=== PATIENT | male | born 1985 | race Caucasian/White ===

== ENCOUNTER 2023-09-08 16:37 | Emergency (ER) | payer OTHER, SELFPAY ==
[2023-09-08 16:43] VITALS: BP 138/85; PULSE 73; RESP 14; TEMP 36.1; O2SAT 100; BMI 37.8
--- NOTE | 2023-09-08 17:04 | ED_ITS ---
HPI - Extremity Injury (Upper) <MEY Go - Last Filed: 09/08/23 17:35> General Chief Complaint: Extremity Injury, Upper Stated Complaint: lt arm injury (bicep popped) Time Seen by Provider: 09/08/23 17:02 Source: patient Mode of arrival: Ambulatory History of Present Illness HPI narrative: 27-year-old male, never smoker, presents to the emergency department with left arm pain. Patient was moving a tree branch and felt a pop in his left elbow and is now unable to flex his arm. Patient is concerned he may have ruptured his biceps tendon. Obvious deformity showing a ?Tyson like biceps ?. Patient denies being in any extraordinary pain at this time. Related Data Allergies Allergy/AdvReac Type Severity Reaction Status Date / Time No Known Drug Allergies Allergy Verified 09/08/23 16:43 Review of Systems <MEY Go - Last Filed: 09/08/23 17:35> Review of Systems Narrative: Narrative: See HPI. GENERAL: Denies chills, fatigue, fever, sweats. RESPIRATORY: Denies dyspnea, cough, wheezing, sputum. CARDIOVASCULAR: Denies chest pain, palpitations, edema. MSK: Endorses left bicep pain and weakness. SKIN: Denies rash, skin lesions, or pruritis. NEUROLOGIC: Denies weakness, dizziness, headache, numbness, confusion. Patient History <MEY Go - Last Filed: 09/08/23 17:35> Social History Smoking Status: Unknown if ever smoked Smoking Status: Unknown if ever smoked alcohol intake frequency: holidays/special occasions only Substance Use Type: does not use Exam <MEY Go - Last Filed: 09/08/23 17:35> Narrative Exam Narrative: Exam Narrative: GENERAL: This is a well-nourished, well-developed patient, in no acute distress HEAD: Atraumatic. Normocephalic. RESPIRATORY: Respiratory rate and effort are normal. MSK: Moves all extremities. Neurovascularly intact. NEURO: A&O x 3. SKIN: Warm, dry, no rashes or lesions noted. ELBOW: There is swelling and asymmetry, but no bruising. There is no tenderness to palpation over the olecranon, medial epicondyle, lateral epicondyle. Negative hook test on left side. There is no specific soft tissue pain. Sensation grossly intact. Range of motion is limited due to pain. Range of motion of the shoulder and wrist is intact. Patient is able to pronate and supinate without pain. Resistive strength for flexion and extension is affected. The contralateral elbow exam is unremarkable. Initial Vital Signs Initial Vital Signs: Vital Signs Temperature 97.0 F L 09/08/23 16:43 Pulse Rate 73 09/08/23 16:43 Respiratory Rate 14 09/08/23 16:43 Blood Pressure 138/85 09/08/23 16:43 Pulse Oximetry 100 09/08/23 16:43 Oxygen Delivery Method Room Air 09/08/23 16:43 Reviewed <Juve Stoner DO - Last Filed: 09/09/23 07:17> Initial Vital Signs Initial Vital Signs: Vital Signs Temperature 97.0 F L 09/08/23 16:43 Pulse Rate 73 09/08/23 16:43 Respiratory Rate 14 09/08/23 16:43 Blood Pressure 138/85 09/08/23 16:43 Pulse Oximetry 100 09/08/23 16:43 Oxygen Delivery Method Room Air 09/08/23 16:43 Course <MEY Go - Last Filed: 09/08/23 17:35> Vital Signs Vital signs: Vital Signs - 8 hr 09/08/23 16:43 Temperature 97.0 F L Pulse Rate 73 Respiratory Rate 14 Blood Pressure 138/85 Pulse Oximetry 100 Oxygen Delivery Method Room Air <Juve Stoner DO - Last Filed: 09/09/23 07:17> Vital Signs Vital signs: Vital Signs - 8 hr 09/08/23 16:43 Temperature 97.0 F L Pulse Rate 73 Respiratory Rate 14 Blood Pressure 138/85 Pulse Oximetry 100 Oxygen Delivery Method Room Air MDM - Extremity Injury (Upper) <MEY Go - Last Filed: 09/08/23 17:35> Differential Diagnosis Differential diagnosis: Likely other (Elbow fracture, biceps tendon rupture) MDM Narrative Medical decision making narrative: 27-year-old male with suspected left distal biceps tendon rupture. Assessment revealed a negative hook test on the affected side. Discussed case with Dr. Stoner of the ED. Contacted on-call orthopedic surgeon, Dr. Hina Purvis, who recommended placing the left arm in a sling and to contact their office 1st thing tomorrow morning. Recommended cool compresses and Tylenol or ibuprofen as needed for discomfort. Discussed plan of care and return precautions with patient and spouse, who verbalized understanding and was agreeable with course of action. Discharge Plan Departure Patient Disposition: Home Clinical Impression: Injury of Upper Extremity Qualifiers: Encounter type: initial encounter Laterality: left Qualified Code(s): S49.92XA - Unspecified injury of left shoulder and upper arm, initial encounter Activity Restrictions/Additional Instructions: *You have been diagnosed with a suspected left biceps tendon rupture. I have contacted the on-call orthopedic doctor and they would like you to call their office 1st thing tomorrow morning. We have placed you in a sling and recommend cool compresses and Tylenol or ibuprofen as needed for discomfort. For any worsening symptoms that include intolerable pain, numbness or tingling, chest pain or shortness of breath, please return to the emergency room immediately. *What to do: *Please continue to take your regular medications as directed. [ ] New medication prescriptions sent to your pharmacy: [ ] [ ] New medication written as a paper prescription [x ] No new medications given *Please follow up with your primary care provider in 2-3 days, call for an appointment. Let them know you were seen in the Emergency Department and that we ask that you be seen in follow up. We will electronically transmit a record of today's note if your PCP is in our system *If you do not have a primary care provider please contact the [facility] Resource line at [phone]. They will ask some questions about your medical history and help get you set up with a doctor in the community. ? Return to ER if you should have any new, worsening or concerning symptoms, such as worsening pain, severe headache, confusion, chest pain, difficulty breathing, fever greater than 101 F, shaking chills, persistent vomiting to the point that you cannot drink fluids, or other new or worsening symptoms. Referrals: Hina Purvis MD [Physician] - (Please evaluate and treat suspected left distal biceps tendon rupture) Stand Alone Forms: Patient Portal/API ED Sign-out <Juve Stoner DO - Last Filed: 09/09/23 07:17> Cosign ED Attending [facility] Attestation: Dr Stoner Co-Sign Statement: I was available for consultation during this patient's emergency department visit. This chart is signed by myself for administrative purposes only. I did not have direct contact with this patient during this visit. They were seen independently by the APC.
--- NOTE | 2023-09-08 17:40 | ED_ITS ---
HPI - Extremity Injury (Upper) <MEY Go - Last Filed: 09/08/23 19:04> General Chief Complaint: Extremity Injury, Upper Stated Complaint: lt arm injury (bicep popped) Time Seen by Provider: 09/08/23 17:02 Source: patient Mode of arrival: Ambulatory History of Present Illness HPI narrative: Addendum: Dr. Hina Purvis called back to the ED requesting elbow x-ray before discharging patient. Radiologist's report no acute osseous abnormality. Patient will call orthopedic office tomorrow morning, as previously discussed. Related Data Allergies Allergy/AdvReac Type Severity Reaction Status Date / Time No Known Drug Allergies Allergy Verified 09/08/23 16:43 Patient History <MEY Go - Last Filed: 09/08/23 19:04> Social History Smoking Status: Unknown if ever smoked Smoking Status: Unknown if ever smoked alcohol intake frequency: holidays/special occasions only Substance Use Type: does not use Exam <MEY Go - Last Filed: 09/08/23 19:04> Initial Vital Signs Initial Vital Signs: Vital Signs Temperature 97.0 F L 09/08/23 16:43 Pulse Rate 73 09/08/23 16:43 Respiratory Rate 14 09/08/23 16:43 Blood Pressure 138/85 09/08/23 16:43 Pulse Oximetry 100 09/08/23 16:43 Oxygen Delivery Method Room Air 09/08/23 16:43 <Juve Stoner DO - Last Filed: 09/09/23 07:17> Initial Vital Signs Initial Vital Signs: Vital Signs Temperature 97.0 F L 09/08/23 16:43 Pulse Rate 73 09/08/23 16:43 Respiratory Rate 14 09/08/23 16:43 Blood Pressure 138/85 09/08/23 16:43 Pulse Oximetry 100 09/08/23 16:43 Oxygen Delivery Method Room Air 09/08/23 16:43 Course <MEY Go - Last Filed: 09/08/23 19:04> Orders Ordered: ED Orders 09/08/23 17:39 XR elbow LT min 3V Stat Vital Signs Vital signs: Vital Signs - 8 hr 09/08/23 16:43 Temperature 97.0 F L Pulse Rate 73 Respiratory Rate 14 Blood Pressure 138/85 Pulse Oximetry 100 Oxygen Delivery Method Room Air <Juve Stoner DO - Last Filed: 09/09/23 07:17> Orders Ordered: ED Orders 09/08/23 17:39 XR elbow LT min 3V Stat Vital Signs Vital signs: Vital Signs - 8 hr 09/08/23 16:43 Temperature 97.0 F L Pulse Rate 73 Respiratory Rate 14 Blood Pressure 138/85 Pulse Oximetry 100 Oxygen Delivery Method Room Air MDM - Extremity Injury (Upper) <MEY Go - Last Filed: 09/08/23 19:04> Imaging Data Extremity x-ray #1: Radiologist's Impression: [address] [address] XRay Report Signed Patient: Hitesh Kelly MR#: [id number] : 12/15/1995 Acct:[id number] Age/Sex: 27 / M Date of Service: 09/08/23 Loc: ED Accession Number: [id number] Procedure: XR elbow LT min 3V Ordering Provider: Juve Holbrook PROCEDURE: XR ELBOW LT MIN 3V INDICATIONS: Left upper extremity trauma -suspected biceps tendon ruptur TECHNIQUE: 3 views of the elbow were acquired. COMPARISON: None. FINDINGS: Bones: No fractures or dislocations. No suspicious bony lesions. Soft tissues: No elbow joint effusion. No suspicious soft tissue calcifications. IMPRESSION: No acute osseous abnormality. Evaluation of the soft tissues is limited by radiograph, no definite evidence of biceps rupture radiographically. If pain persists with conservative management, consider repeat x-ray in 10-14 days or cross-sectional imaging. Dictated by: Juventino Dumont M.D. on 09/08/2023 at 18:57 Approved by: Juventino Dumont M.D. on 09/08/2023 at 18:58 Discharge Plan Departure Patient Disposition: Home Clinical Impression: Injury of Upper Extremity Qualifiers: Encounter type: initial encounter Laterality: left Qualified Code(s): S49.92XA - Unspecified injury of left shoulder and upper arm, initial encounter Activity Restrictions/Additional Instructions: *You have been diagnosed with a suspected left biceps tendon rupture. I have contacted the on-call orthopedic doctor and they would like you to call their office 1st thing tomorrow morning. We have placed you in a sling and recommend cool compresses and Tylenol or ibuprofen as needed for discomfort. For any worsening symptoms that include intolerable pain, numbness or tingling, chest pain or shortness of breath, please return to the emergency room immediately. *What to do: *Please continue to take your regular medications as directed. [ ] New medication prescriptions sent to your pharmacy: [ ] [ ] New medication written as a paper prescription [x ] No new medications given *Please follow up with your primary care provider in 2-3 days, call for an appointment. Let them know you were seen in the Emergency Department and that we ask that you be seen in follow up. We will electronically transmit a record of today's note if your PCP is in our system *If you do not have a primary care provider please contact the [facility] Resource line at [phone]. They will ask some questions about your medical history and help get you set up with a doctor in the community. ? Return to ER if you should have any new, worsening or concerning symptoms, such as worsening pain, severe headache, confusion, chest pain, difficulty breathing, fever greater than 101 F, shaking chills, persistent vomiting to the point that you cannot drink fluids, or other new or worsening symptoms. Referrals: Hina Purvis MD [Physician] - (Please evaluate and treat suspected left distal biceps tendon rupture) Stand Alone Forms: Patient Portal/API ED Sign-out <Juve Stoner DO - Last Filed: 09/09/23 07:17> [facility] Dr Stoner Co-Sign Statement: I was available for consultation during this patient's emergency department visit. This chart is signed by myself for administrative purposes only. I did not have direct contact with this patient during this visit. They were seen independently by the APC.
[2023-09-08 19:04] VITALS: BP 131/76; PULSE 54; RESP 16; O2SAT 99
== END 2023-09-08 19:04 | disposition home or self-care (01) ==
PROVIDERS: Emergency Provider Registered Nurse
DX: S49.92XA Unspecified injury of left shoulder and upper arm, initial encounter (principal); X50.9XXA Other and unspecified overexertion or strenuous movements or postures, initial encounter
CPT/HCPCS: 73080; 99283

== ENCOUNTER → 2023-09-14 19:42 | Outpatient (CLI) | payer OTHER, SELFPAY ==
--- NOTE | 2023-09-14 | DI.MRI.S_ITS ---
PROCEDURE: MR ELBOW LT W CON INDICATIONS: Pain in lt elbow TECHNIQUE: Noncontrast coronal proton density fast spin echo and T2 fast spin echo with fat saturation, axial and sagittal T1 spin echo and T2 fast spin echo with fat saturation through the elbow. COMPARISON: None. FINDINGS: Image quality: Excellent. Lateral structures: The lateral ulnar collateral ligament and radial collateral ligament both appear intact. The overlying common extensor tendon also appears normal. Medial structures: There is subcutaneous soft tissue edema along anterior medial aspect of elbow joint. The ulnar collateral ligament appears thickened at its medial epicondylar insertion. The overlying common flexor tendon appears mildly thickened. The ulnar nerve appears normal in size and signal within the cubital tunnel. Anterior structures: There is rupture of distal biceps tendon at its proximal radial insertion with up to 4.2 cm proximal retraction of torn tendon fibers to the level of distal humeral condyles. The brachialis tendon is thickened at its proximal ulnar insertion suggestive of mild tendinosis.. The median and radial neurovascular bundles appear normal; no focal muscle atrophy to suggest nerve impingement. Posterior structures: The conjoint triceps tendon from the long and lateral heads appears intact. The medial head of the triceps tendon also appears normal, with direct muscle insertion onto the olecranon. No olecranon bursal fluid. Bone and cartilage: No bone marrow contusions or fractures. No osteochondral injuries. IMPRESSION: 1. Soft tissue swelling and edema along anterior and medial aspect of elbow joint. No marrow edema. No fracture or dislocation. No intra-articular loose bodies or gross osteochondral injuries. 2. Full-thickness rupture of distal biceps tendon at its proximal radial insertion with up to 4.2 cm proximal retraction of torn tendon fibers to the level of distal humeral condyles and moderate amount of surrounding fluid and soft tissue edema. Distal brachialis tendinosis. 3. Very mild medial epicondylitis with sprain of ulnar collateral ligament and overlying common flexor tendon origin tendinosis. Dictated by: Albert San M.D. on 09/15/2023 at 10:53 Approved by: Albert San M.D. on 09/15/2023 at 10:59
== END ==
PROVIDERS: PCP Family Medicine; Referring Provider Orthopaedic Surgery; Visit Provider Orthopaedic Surgery
DX: S53.442A Ulnar collateral ligament sprain of left elbow, initial encounter (principal); S46.212A Strain of muscle, fascia and tendon of other parts of biceps, left arm, initial encounter; M25.522 Pain in left elbow; M25.422 Effusion, left elbow
CPT/HCPCS: 73221

== ENCOUNTER → 2024-04-21 07:21 | Outpatient (CLI) | payer BC, SELFPAY | PROVIDERS: PCP Family Medicine; Referring Provider Physician Assistant Surgical; Visit Provider Physician Assistant Surgical | DX: J02.9 Acute pharyngitis, unspecified (principal) | CPT/HCPCS: 87070 ==